=== PATIENT | male | born 1980 | race Hispanic/Latino ===

== ENCOUNTER 2021-06-06 02:52 | Inpatient (IN) | payer BC, OTHER, SELFPAY ==
[2021-06-06 03:08] LABS: Analyzer IN Cardio ER; Base Excess (BEa) -3.9 mEq/L (-2.0 to +3.0); CO2 Tension 32.9 mmHg (35.0-45.0); Calcium, Ionized (arterial) 1.11 mmol/L (1.12-1.30); Carboxyhemoglobin (COHb) 0.3 gm% (0.0-3.0); Hemoglobin (Hb) 12.9 g/dL (14.0-18.0); O2 Tension (PaO2), arterial 265.5 mmHg (80.0-100.0); Potassium - ABG Lab 2.59 mmol/L (3.70-5.30)
[2021-06-06 03:18] LABS: #Basophils 0.1 thou/uL (0.0-0.2); #Eosinphils 0.1 thou/uL (0.0-0.7); #Lymphocytes 2.7 thou/uL (1.20-3.40); #Monocytes 0.7 thou/uL (0.11-0.59); #Neutrophils 9.3 thou/uL (1.40-6.50); %Basophils 0.5 % (0.0-1.0); %Eosinophils 0.7 % (0.0-10.0); %Lymphocytes 20.9 % (21.0-51.0); %Monocytes 5.4 % (0.0-10.0); %Neutrophils 72.4 % (42.0-75.0); Hemoglobin 12.7 g/dL (14.0-18.0); Mean Corpuscular HGB CONC 33.9 g/dL (32.0-36.0); Mean Corpuscular Hemoglobin 30.3 pg (27.0-31.0); Mean Corpuscular Volume 89.3 fL (78.0-98.0); Mean Platelet Volume 8.1 fL (7.4-10.4); Platelet Count 218 thou/uL (130-400); RBC Distribution Width 11.5 % (11.5-14.5); Red Blood Cell (RBC) Count 4.19 mill/uL (4.70-6.10); White Blood Cell (WBC) Count 12.8 thou/uL (4.8-10.8)
[2021-06-06 03:19] LABS: Bilirubin Negative (Negative); Blood, Urine Negative (Negative); Clarity Clear (Clear); Glucose, Urine (Dipstick) 500 mg/dL (Negative); Ketone, Urine Negative (Negative); Leukocyte Negative Leu/uL (Negative); Nitrite Negative (Negative); Protein, Urine (Dipstick) Negative (Neg-Trace); Specific Gravity, Urine 1.004 (1.002-1.036); Urobilinogen Normal mg/dL (Less than 2)
[2021-06-06 03:27] LABS: INR-International Normal Ratio 1.1; Prothrombin Time 14.7 sec (12.0-14.7)
[2021-06-06 03:28] LABS: PTT 27.8 sec (22.9-36.1)
[2021-06-06 03:28] LABS: Amphetamine Not Detected (NotDetected); Barbiturates Screen Not Detected (NotDetected); Benzodiazepine Screen Not Detected (NotDetected); Cocaine Metabolite Screen Not Detected (NotDetected); Methadone Not Detected (NotDetected); Methamphetamine Not Detected (NotDetected); Opiate Screen Not Detected (NotDetected); Oxycodone Screen Not Detected (NotDetected); Phencyclidine (PCP) Not Detected (NotDetected); THC/Cannabinoid Screen Not Detected (NotDetected); Tricyclic Screen Not Detected (NotDetected)
[2021-06-06 03:29] LABS: ALV-art Gradient 406.375 mmHg (0-20); Puncture Site RRA
[2021-06-06] MEDS ORDERED: Dextrose 5% in Water 1,000 ML IV PRN (03:33)
[2021-06-06] MEDS ORDERED: TETANUS AND DIPHTHERIA TOX/PF 0.5 ML DISP.SYRIN IM ONE (03:33)
[2021-06-06] MEDS ORDERED: Dextrose 50% Abboject 50 ML SYRINGE SLOW IVP PRN (03:33)
[2021-06-06] MEDS ORDERED: Insulin Regular 300 UNITS/3 ML VIAL SC PRN (03:33)
[2021-06-06] MEDS ORDERED: Ondansetron PF 4 MG/2 ML Vial IVP PRN (03:33)
[2021-06-06] MEDS ORDERED: CEFAZOLIN 1 GM VIAL ONE (03:34)
[2021-06-06] MEDS ORDERED: Boostrix 0.5 ML (Tdap) VIAL ONE (03:34)
[2021-06-06] MEDS ORDERED: Acetaminophen 650 MG/20.3 ML UDCUP PER TUBE PRN (03:41)
[2021-06-06 03:43] LABS: Acetaminophen Less than 6.0 mcg/mL (10.0-30.0); Alcohol 146 mg/dL (Less than 10); Salicylate Less than 8.0 mg/dL (15.0-30.0)
[2021-06-06 03:44] LABS: ALT (SGPT) 29 U/L (8-55); AST (SGOT) 46 U/L (5-34); Albumin 3.7 g/dL (3.5-5.0); Alkaline Phosphatase 74 U/L (40-110); Anion Gap 14 mmol/L (10-20); BUN (Urea Nitrogen) 8 mg/dL (8.9-20.6); Bilirubin, Total 0.4 mg/dL (0.2-1.2); Calc. Creatinine Clearance 0 mL/min (70-130); Calcium 8.4 mg/dL (7.8-10.44); Carbon Dioxide 20 mmol/L (22-29); Chloride 102 mmol/L (98-107); Globulin 2.7 g/dL (2.4-3.5); Glucose 255 mg/dL (70-105); Protein, Total 6.4 g/dL (6.0-8.3); Sodium 133 mmol/L (136-145)
[2021-06-06] MEDS ORDERED: CEFAZOLIN 1 GM VIAL SLOW IVP SCH (03:44)
[2021-06-06] MEDS ORDERED: Ventilator Sedation Protocol 1 EACH FS SCH (03:45)
[2021-06-06 03:57] LABS: Potassium 2.7 mmol/L (3.5-5.1)
[2021-06-06] MEDS ORDERED: Morphine 4 MG/ML VIAL SLOW IVP PRN (04:00)
[2021-06-06] MEDS ORDERED: fentaNYL Citrate-0.9 % NaCl/PF 100 ML IV SCH (04:00)
[2021-06-06] MEDS ORDERED: Fentanyl BOLUS 250 ML IVPB PRN (04:00)
[2021-06-06] MEDS ORDERED: Propofol BOLUS 1,000 MG/100 ML VIAL IV PRN (04:00)
[2021-06-06] MEDS ORDERED: Lorazepam 2 MG/ML VIAL SLOW IVP PRN (04:00)
[2021-06-06] MEDS ORDERED: Propofol 1,000 MG/100 ML VIAL IV PRN (04:00)
[2021-06-06] MEDS ORDERED: DISCONTINUE PREVIOUS NARCOTIC PAIN MEDICATIONS AND BENZODIAZEPINES FS SCH (04:00)
[2021-06-06] MEDS ORDERED: Fentanyl 100 MCG/2 ML VIAL ONE (04:54)
[2021-06-06 05:09] LABS: Phosphorus 2.5 mg/dL (2.3-4.7)
[2021-06-06 05:11] LABS: Magnesium 1.7 mg/dL (1.6-2.6)
[2021-06-06] MEDS ORDERED: Magnesium Sulfate 3 GM in Sodium Chloride 0.9% 100 ML IVPB SCH (05:33)
[2021-06-06] MEDS ORDERED: Calcium Chloride 1 GM/10 ML Abboject SYRINGE IVP SCH (05:45)
[2021-06-06] MEDS ORDERED: Calcium Chloride 13.6 MEQ in Sodium Chloride 0.9% 100 ML IVPB SCH (06:15)
[2021-06-06] MEDS: Sodium Chloride 0.9% 1,000 ML IV SCH ×3 (06:15→22:42)
[2021-06-06] MEDS: Potassium Chloride 40 MEQ in Premix Bag 1 BAG IVPB SCH ×2 (06:15→07:17)
[2021-06-06 06:28] LABS: Lactic Acid 3.3 mmol/L (0.5-2.2)
[2021-06-06] MEDS: Famotidine/PF 20 mg/2ml Vial SLOW IVP SCH ×2 (08:39→20:37)
[2021-06-06] MEDS: Potassium Chloride 20 MEQ in Premix Bag 1 BAG IVPB SCH ×2 (08:40→11:26)
[2021-06-06] MEDS ORDERED: Senokot S 8.6-50 MG TAB PER TUBE SCH (09:00)
[2021-06-06] MEDS ORDERED: FLU VACC QS2021-22(6MOS UP)/PF 60 MCG/0.5 ML SYRINGE IM ONE (09:00)
[2021-06-06] MEDS ORDERED: Aspirin 81 mg Enteric Coated Tablet PO SCH (10:15)
[2021-06-06] MEDS ORDERED: Iopamidol 370 76% 100 ML VIAL ONE ×2 (10:40→10:44)
[2021-06-06] MEDS ORDERED: Acetaminophen 650 MG/20.3 ML UDCUP PER TUBE SCH (12:00)
[2021-06-06] MEDS ORDERED: Midazolam HCl 2 mg/2 ml Vial ONE (12:13)
[2021-06-06] MEDS: CEFAZOLIN 2 GM, Admixture Fee 1 EACH in Sodium Chloride 0.9% 100 ML IVPB SCH ×2 (12:24→20:37)
[2021-06-06] MEDS ORDERED: Rocuronium Bromide 10 MG/ML (10ML VIAL) ONE (12:36)
[2021-06-06] MEDS ORDERED: PROPOFOL 200 MG/20 ML VIAL ONE (12:36)
[2021-06-06] MEDS ORDERED: Fentanyl 250 MCG/5 ML VIAL ONE (13:37)
[2021-06-06] MEDS ORDERED: Promethazine HCl 25 MG/ML VIAL IM PRN (13:50)
[2021-06-06] MEDS ORDERED: PACU-Morphine 4MG/ML VIAL SLOW IVP PRN (13:50)
[2021-06-06] MEDS ORDERED: Ondansetron HCl/PF 4 MG/2 ML Vial IVP PRN (13:50)
[2021-06-06] MEDS ORDERED: Promethazine HCl 25 MG/ML VIAL IVPB PRN (13:50)
[2021-06-06] MEDS: Bacitracin Zinc Ointment 30 gm TUBE TOP SCH (14:29)
[2021-06-06] MEDS ORDERED: Acetaminophen/Codeine 30-300mg Tablet PO PRN ×2 (15:23)
[2021-06-06 15:25] LABS: SARS-CoV-2 PCR by NAA Not Detected (NotDetected)
[2021-06-06] MEDS: hydrALAZINE 20 MG/ML VIAL SLOW IVP PRN (15:38)
[2021-06-06] MEDS: Insulin Regular 300 UNITS/3 ML VIAL SC PRN (16:26)
[2021-06-06] MEDS: Acetaminophen 325 MG TAB PO SCH (16:56)
[2021-06-06] MEDS: Senokot S 8.6-50 MG TAB PO SCH (20:38)
[2021-06-07] MEDS: Acetaminophen 325 MG TAB PO SCH ×5 (00:15→17:31)
[2021-06-07] MEDS: Senokot S 8.6-50 MG TAB PO SCH ×3 (00:24→20:47)
[2021-06-07] MEDS: CEFAZOLIN 2 GM, Admixture Fee 1 EACH in Sodium Chloride 0.9% 100 ML IVPB SCH ×3 (04:18→20:46)
[2021-06-07] MEDS: Insulin Regular 300 UNITS/3 ML VIAL SC PRN ×4 (04:18→23:21)
[2021-06-07] MEDS: hydrALAZINE 20 MG/ML VIAL SLOW IVP PRN (04:19)
[2021-06-07 04:25] LABS: #Monocytes 1.1 thou/uL (0.11-0.59); #Neutrophils 14.8 thou/uL (1.40-6.50); %Basophils 0.1 % (0.0-1.0); %Lymphocytes 5.6 % (21.0-51.0); %Monocytes 6.4 % (0.0-10.0); %Neutrophils 87.9 % (42.0-75.0); Hemoglobin 12.2 g/dL (14.0-18.0); Mean Corpuscular HGB CONC 31.8 g/dL (32.0-36.0); Mean Corpuscular Hemoglobin 28.8 pg (27.0-31.0); Mean Corpuscular Volume 90.7 fL (78.0-98.0); Mean Platelet Volume 8.8 fL (7.4-10.4); Platelet Count 240 thou/uL (130-400); RBC Distribution Width 11.8 % (11.5-14.5); Red Blood Cell (RBC) Count 4.23 mill/uL (4.70-6.10); White Blood Cell (WBC) Count 16.9 thou/uL (4.8-10.8)
[2021-06-07 04:33] LABS: Anion Gap 9 mmol/L (10-20); BUN (Urea Nitrogen) 8 mg/dL (8.9-20.6); Calc. Creatinine Clearance 161 mL/min (70-130); Calcium 8.5 mg/dL (7.8-10.44); Carbon Dioxide 26 mmol/L (22-29); Chloride 103 mmol/L (98-107); Glucose 219 mg/dL (70-105); Magnesium 2.2 mg/dL (1.6-2.6); Potassium 3.9 mmol/L (3.5-5.1); Sodium 134 mmol/L (136-145)
[2021-06-07 04:35] LABS: Phosphorus 2.3 mg/dL (2.3-4.7)
[2021-06-07] MEDS: Sodium Chloride 0.9% 1,000 ML IV SCH ×2 (06:14→12:54)
[2021-06-07] MEDS: Famotidine/PF 20 mg/2ml Vial SLOW IVP SCH ×2 (08:54→20:47)
[2021-06-07] MEDS: Aspirin 81 mg Enteric Coated Tablet PO SCH (08:55)
[2021-06-07] MEDS: Bacitracin Zinc Ointment 30 gm TUBE TOP SCH (08:55)
[2021-06-07] MEDS ORDERED: Sodium Phosphate 15 MMOL in Sodium Chloride 0.9% 250 ML 250 ML IVPB SCH (11:30)
[2021-06-07] MEDS ORDERED: Sodium Chloride 1 GM TAB PO SCH (12:30)
[2021-06-07] MEDS: Polyethylene Glycol 3350 17 GM Packet PO SCH (12:53)
[2021-06-07] MEDS: Sodium Chloride 1 GM TAB PO SCH (20:50)
[2021-06-08] MEDS: Acetaminophen 325 MG TAB PO SCH ×5 (00:19→23:26)
[2021-06-08] MEDS: hydrALAZINE 20 MG/ML VIAL SLOW IVP PRN (00:20)
[2021-06-08] MEDS: Sodium Chloride 0.9% 1,000 ML IV SCH ×2 (03:35→18:30)
[2021-06-08] MEDS: CEFAZOLIN 2 GM, Admixture Fee 1 EACH in Sodium Chloride 0.9% 100 ML IVPB SCH ×3 (04:07→20:35)
[2021-06-08 05:19] LABS: #Lymphocytes 1.5 thou/uL (1.20-3.40); #Monocytes 1.6 thou/uL (0.11-0.59); #Neutrophils 13.1 thou/uL (1.40-6.50); %Eosinophils 0.1 % (0.0-10.0); %Lymphocytes 9.2 % (21.0-51.0); %Monocytes 9.7 % (0.0-10.0); Hemoglobin 12.4 g/dL (14.0-18.0); Mean Corpuscular Hemoglobin 29.8 pg (27.0-31.0); Mean Corpuscular Volume 90.4 fL (78.0-98.0); Mean Platelet Volume 8.5 fL (7.4-10.4); Platelet Count 263 thou/uL (130-400); RBC Distribution Width 11.7 % (11.5-14.5); Red Blood Cell (RBC) Count 4.16 mill/uL (4.70-6.10); White Blood Cell (WBC) Count 16.2 thou/uL (4.8-10.8)
[2021-06-08 06:14] LABS: Anion Gap 22 mmol/L (10-20); BUN (Urea Nitrogen) 11 mg/dL (8.9-20.6); Calc. Creatinine Clearance 155 mL/min (70-130); Calcium 8.5 mg/dL (7.8-10.44); Carbon Dioxide 14 mmol/L (22-29); Chloride 105 mmol/L (98-107); Glucose 245 mg/dL (70-105); Magnesium 2.4 mg/dL (1.6-2.6); Phosphorus 1.7 mg/dL (2.3-4.7); Potassium 3.8 mmol/L (3.5-5.1); Sodium 137 mmol/L (136-145)
[2021-06-08] MEDS ORDERED: Sodium Chloride 0.9% 1,000 ML IV SCH (07:45)
[2021-06-08 08:48] LABS: Sodium 138 mmol/L (136-145)
[2021-06-08] MEDS ORDERED: chlorproMAZINE HCl 25 MG TAB PO PRN (09:15)
[2021-06-08] MEDS: Famotidine/PF 20 mg/2ml Vial SLOW IVP SCH ×2 (11:00→20:35)
[2021-06-08] MEDS: Senokot S 8.6-50 MG TAB PO SCH ×2 (11:00→20:35)
[2021-06-08] MEDS: Aspirin 81 mg Enteric Coated Tablet PO SCH (11:01)
[2021-06-08] MEDS: Polyethylene Glycol 3350 17 GM Packet PO SCH (11:02)
[2021-06-08] MEDS: Bacitracin Zinc Ointment 30 gm TUBE TOP SCH (11:02)
[2021-06-08] MEDS: Sodium Chloride 1 GM TAB PO SCH (13:17)
[2021-06-08 14:46] LABS: Sodium 136 mmol/L (136-145)
[2021-06-08] MEDS: Insulin Regular 300 UNITS/3 ML VIAL SC PRN ×2 (16:56→22:18)
[2021-06-08] MEDS: chlorproMAZINE HCl 50 MG/2 ML AMP IM PRN (17:48)
[2021-06-08 20:35] LABS: Sodium 136 mmol/L (136-145)
[2021-06-09 02:43] LABS: #Basophils 0.1 thou/uL (0.0-0.2); #Lymphocytes 1.8 thou/uL (1.20-3.40); #Monocytes 1.7 thou/uL (0.11-0.59); #Neutrophils 10.8 thou/uL (1.40-6.50); %Basophils 0.5 % (0.0-1.0); %Eosinophils 0.1 % (0.0-10.0); %Lymphocytes 12.7 % (21.0-51.0); %Monocytes 11.6 % (0.0-10.0); %Neutrophils 75.2 % (42.0-75.0); Hemoglobin 12.8 g/dL (14.0-18.0); Mean Corpuscular HGB CONC 34.3 g/dL (32.0-36.0); Mean Corpuscular Hemoglobin 30.7 pg (27.0-31.0); Mean Corpuscular Volume 89.4 fL (78.0-98.0); Mean Platelet Volume 8.5 fL (7.4-10.4); Platelet Count 270 thou/uL (130-400); RBC Distribution Width 11.8 % (11.5-14.5); Red Blood Cell (RBC) Count 4.17 mill/uL (4.70-6.10); White Blood Cell (WBC) Count 14.3 thou/uL (4.8-10.8)
[2021-06-09 02:55] LABS: Sodium 139 mmol/L (136-145)
[2021-06-09 03:12] LABS: Anion Gap 8 mmol/L (10-20); BUN (Urea Nitrogen) 16 mg/dL (8.9-20.6); Calc. Creatinine Clearance 143 mL/min (70-130); Carbon Dioxide 29 mmol/L (22-29); Chloride 107 mmol/L (98-107); Glucose 298 mg/dL (70-105); Magnesium 2.7 mg/dL (1.6-2.6); Potassium 4.3 mmol/L (3.5-5.1); Sodium 140 mmol/L (136-145)
[2021-06-09 03:30] LABS: Phosphorus 1.8 mg/dL (2.3-4.7)
[2021-06-09] MEDS: Insulin Regular 300 UNITS/3 ML VIAL SC PRN ×4 (04:16→23:10)
[2021-06-09] MEDS: CEFAZOLIN 2 GM, Admixture Fee 1 EACH in Sodium Chloride 0.9% 100 ML IVPB SCH (04:50)
[2021-06-09] MEDS: Sodium Chloride 0.9% 1,000 ML IV SCH ×2 (05:34→22:13)
[2021-06-09] MEDS: Acetaminophen 325 MG TAB PO SCH ×3 (05:41→18:37)
[2021-06-09] MEDS ORDERED: Sodium Phosphate 30 MMOL in Sodium Chloride 0.9% 250 ML 250 ML IVPB SCH (06:45)
[2021-06-09] MEDS ORDERED: Potassium Phosphate 30 MMOL in Sodium Chloride 0.9% 250 ML 250 ML IVPB SCH (07:45)
[2021-06-09] MEDS: Bacitracin Zinc Ointment 30 gm TUBE TOP SCH (08:05)
[2021-06-09] MEDS: Aspirin 81 mg Enteric Coated Tablet PO SCH (08:05)
[2021-06-09] MEDS: Polyethylene Glycol 3350 17 GM Packet PO SCH (08:05)
[2021-06-09] MEDS: Senokot S 8.6-50 MG TAB PO SCH ×2 (08:05→22:12)
[2021-06-09] MEDS: Famotidine/PF 20 mg/2ml Vial SLOW IVP SCH ×2 (08:05→21:59)
[2021-06-09 08:32] LABS: Sodium 141 mmol/L (136-145)
[2021-06-09] MEDS: Aspirin Chewable 81 MG TAB PO SCH (08:48)
[2021-06-09] MEDS ORDERED: cefTRIAXone\\ROCEPHIN 1 GM in Sodium Chloride 0.9% 100 ML IVPB SCH (09:00)
[2021-06-09] MEDS ORDERED: Piperacillin/Tazobactam 3.375 GM in Sodium Chloride 0.9% 100 ML IVPB SCH (09:00)
[2021-06-09] MEDS ORDERED: Lantus 1000 UNITS/10 ML VIAL SC SCH ×3 (09:00→21:00)
[2021-06-09] MEDS: Saccharomyces boulardii 250 MG CAP PO SCH (11:42)
[2021-06-09] MEDS: Piperacillin/Tazobactam 3.375 GM in Sodium Chloride 0.9% 100 ML IVPB SCH ×2 (13:08→21:59)
[2021-06-09] MEDS: chlorproMAZINE HCl 50 MG/2 ML AMP IM PRN (15:42)
[2021-06-09] MEDS ORDERED: Dextrose 5% in Water 1,000 ML IV PRN (22:34)
[2021-06-09] MEDS ORDERED: Dextrose 50% Abboject 50 ML SYRINGE SLOW IVP PRN (22:34)
[2021-06-10] MEDS: Acetaminophen 325 MG TAB PO SCH ×4 (00:18→17:25)
[2021-06-10] MEDS: Insulin Regular 300 UNITS/3 ML VIAL SC PRN ×6 (00:28→22:16)
[2021-06-10 04:04] LABS: #Lymphocytes 1.7 thou/uL (1.20-3.40); #Monocytes 1.6 thou/uL (0.11-0.59); #Neutrophils 11.6 thou/uL (1.40-6.50); %Basophils 0.3 % (0.0-1.0); %Eosinophils 0.3 % (0.0-10.0); %Lymphocytes 11.4 % (21.0-51.0); %Monocytes 10.5 % (0.0-10.0); %Neutrophils 77.5 % (42.0-75.0); Hemoglobin 12.5 g/dL (14.0-18.0); Mean Corpuscular HGB CONC 32.3 g/dL (32.0-36.0); Mean Corpuscular Hemoglobin 29.7 pg (27.0-31.0); Mean Corpuscular Volume 91.9 fL (78.0-98.0); Mean Platelet Volume 8.4 fL (7.4-10.4); Platelet Count 285 thou/uL (130-400); RBC Distribution Width 12.1 % (11.5-14.5); Red Blood Cell (RBC) Count 4.21 mill/uL (4.70-6.10)
[2021-06-10] MEDS: Piperacillin/Tazobactam 3.375 GM in Sodium Chloride 0.9% 100 ML IVPB SCH ×3 (05:20→20:12)
[2021-06-10 05:36] LABS: Anion Gap 11 mmol/L (10-20); BUN (Urea Nitrogen) 18 mg/dL (8.9-20.6); Calc. Creatinine Clearance 173 mL/min (70-130); Calcium 9.3 mg/dL (7.8-10.44); Carbon Dioxide 25 mmol/L (22-29); Chloride 110 mmol/L (98-107); Glucose 286 mg/dL (70-105); Magnesium 2.7 mg/dL (1.6-2.6); Phosphorus 3.1 mg/dL (2.3-4.7); Potassium 4.3 mmol/L (3.5-5.1); Sodium 142 mmol/L (136-145)
[2021-06-10] MEDS: Aspirin Chewable 81 MG TAB PO SCH (08:26)
[2021-06-10] MEDS: metFORMIN 500 MG TAB PO SCH ×2 (08:26→16:39)
[2021-06-10] MEDS: Senokot S 8.6-50 MG TAB PO SCH ×2 (08:26→20:12)
[2021-06-10] MEDS: Saccharomyces boulardii 250 MG CAP PO SCH (08:26)
[2021-06-10] MEDS: Polyethylene Glycol 3350 17 GM Packet PO SCH (08:27)
[2021-06-10] MEDS: Famotidine 20 MG TAB PER TUBE SCH ×2 (08:27→20:12)
[2021-06-10] MEDS: Sodium Chloride 0.9% 1,000 ML IV SCH (08:27)
[2021-06-10] MEDS: Bacitracin Zinc Ointment 30 gm TUBE TOP SCH (08:27)
[2021-06-10] MEDS ORDERED: Lantus 1000 UNITS/10 ML VIAL SC SCH ×2 (09:00)
[2021-06-10] MEDS: Lantus 1000 UNITS/10 ML VIAL SC SCH ×2 (09:36→22:15)
[2021-06-10] MEDS: chlorproMAZINE HCl 50 MG/2 ML AMP IM PRN ×2 (12:32→16:39)
[2021-06-11] MEDS: Acetaminophen 325 MG TAB PO SCH ×5 (01:01→23:31)
[2021-06-11] MEDS: Insulin Regular 300 UNITS/3 ML VIAL SC PRN ×2 (01:25→12:11)
[2021-06-11 05:32] LABS: #Eosinphils 0.1 thou/uL (0.0-0.7); #Lymphocytes 2.5 thou/uL (1.20-3.40); #Monocytes 1.2 thou/uL (0.11-0.59); #Neutrophils 11.6 thou/uL (1.40-6.50); %Basophils 0.3 % (0.0-1.0); %Eosinophils 0.7 % (0.0-10.0); %Lymphocytes 16.1 % (21.0-51.0); %Monocytes 7.9 % (0.0-10.0); Hemoglobin 11.8 g/dL (14.0-18.0); Mean Corpuscular HGB CONC 31.6 g/dL (32.0-36.0); Mean Corpuscular Volume 91.8 fL (78.0-98.0); Mean Platelet Volume 8.3 fL (7.4-10.4); Platelet Count 342 thou/uL (130-400); RBC Distribution Width 12.3 % (11.5-14.5); Red Blood Cell (RBC) Count 4.08 mill/uL (4.70-6.10); White Blood Cell (WBC) Count 15.5 thou/uL (4.8-10.8)
[2021-06-11] MEDS: Piperacillin/Tazobactam 3.375 GM in Sodium Chloride 0.9% 100 ML IVPB SCH ×3 (05:38→20:57)
[2021-06-11 05:50] LABS: Anion Gap 16 mmol/L (10-20); BUN (Urea Nitrogen) 17 mg/dL (8.9-20.6); Calc. Creatinine Clearance 132 mL/min (70-130); Calcium 9.2 mg/dL (7.8-10.44); Carbon Dioxide 25 mmol/L (22-29); Chloride 111 mmol/L (98-107); Glucose 183 mg/dL (70-105); Magnesium 2.3 mg/dL (1.6-2.6); Phosphorus 3.4 mg/dL (2.3-4.7); Potassium 3.9 mmol/L (3.5-5.1); Sodium 148 mmol/L (136-145)
[2021-06-11] MEDS: Senokot S 8.6-50 MG TAB PO SCH ×2 (08:44→20:58)
[2021-06-11] MEDS: Saccharomyces boulardii 250 MG CAP PO SCH (08:44)
[2021-06-11] MEDS: metFORMIN 500 MG TAB PO SCH ×2 (08:45→17:13)
[2021-06-11] MEDS: Lantus 1000 UNITS/10 ML VIAL SC SCH ×2 (08:45→20:58)
[2021-06-11] MEDS: Famotidine 20 MG TAB PER TUBE SCH (08:45)
[2021-06-11] MEDS: Aspirin Chewable 81 MG TAB PO SCH (08:45)
[2021-06-11] MEDS: Polyethylene Glycol 3350 17 GM Packet PO SCH (08:45)
[2021-06-11] MEDS: Bacitracin Zinc Ointment 30 gm TUBE TOP SCH (08:45)
[2021-06-11] MEDS ORDERED: ceFAZolin 2 GM/Dextrose 50 ML 2 GM in Premix Bag 1 BAG IVPB SCH (09:00)
[2021-06-11] MEDS ORDERED: ceFAZolin Sodium (SDC) 2 GM/100 ML BAG ONE (10:16)
[2021-06-11] MEDS ORDERED: Ketamine 50 MG/ML (10ML VIAL) ONE (10:19)
[2021-06-11] MEDS ORDERED: Midazolam HCl 2 mg/2 ml Vial ONE (10:19)
[2021-06-11] MEDS ORDERED: PROPOFOL 200 MG/20 ML VIAL ONE (10:29)
[2021-06-11] MEDS ORDERED: Sodium Chloride 0.9% 1,000 ML IV SCH ×2 (11:45→17:00)
[2021-06-12] MEDS: Piperacillin/Tazobactam 3.375 GM in Sodium Chloride 0.9% 100 ML IVPB SCH ×3 (05:35→21:10)
[2021-06-12] MEDS: chlorproMAZINE HCl 50 MG/2 ML AMP IM PRN (05:36)
[2021-06-12] MEDS: Insulin Regular 300 UNITS/3 ML VIAL SC PRN ×4 (05:36→23:38)
[2021-06-12] MEDS: Acetaminophen 325 MG TAB PO SCH ×4 (05:58→23:37)
[2021-06-12 06:36] LABS: #Basophils 0.1 thou/uL (0.0-0.2); #Eosinphils 0.1 thou/uL (0.0-0.7); #Lymphocytes 2.2 thou/uL (1.20-3.40); #Monocytes 1.3 thou/uL (0.11-0.59); #Neutrophils 13.7 thou/uL (1.40-6.50); %Basophils 0.4 % (0.0-1.0); %Eosinophils 0.6 % (0.0-10.0); %Lymphocytes 12.5 % (21.0-51.0); %Monocytes 7.6 % (0.0-10.0); %Neutrophils 78.9 % (42.0-75.0); Hemoglobin 12.7 g/dL (14.0-18.0); Mean Corpuscular HGB CONC 31.1 g/dL (32.0-36.0); Mean Corpuscular Hemoglobin 28.9 pg (27.0-31.0); Mean Platelet Volume 8.4 fL (7.4-10.4); Platelet Count 389 thou/uL (130-400); RBC Distribution Width 12.2 % (11.5-14.5); Red Blood Cell (RBC) Count 4.39 mill/uL (4.70-6.10); White Blood Cell (WBC) Count 17.3 thou/uL (4.8-10.8)
[2021-06-12 07:02] LABS: Anion Gap 15 mmol/L (10-20); BUN (Urea Nitrogen) 17 mg/dL (8.9-20.6); Calc. Creatinine Clearance 130 mL/min (70-130); Calcium 9.7 mg/dL (7.8-10.44); Carbon Dioxide 25 mmol/L (22-29); Chloride 109 mmol/L (98-107); Glucose 210 mg/dL (70-105); Magnesium 2.3 mg/dL (1.6-2.6); Phosphorus 3.9 mg/dL (2.3-4.7); Potassium 4.2 mmol/L (3.5-5.1); Sodium 145 mmol/L (136-145)
[2021-06-12] MEDS: Bacitracin Zinc Ointment 30 gm TUBE TOP SCH (08:22)
[2021-06-12] MEDS: Aspirin Chewable 81 MG TAB PO SCH (08:22)
[2021-06-12] MEDS: Polyethylene Glycol 3350 17 GM Packet PO SCH (08:22)
[2021-06-12] MEDS: Saccharomyces boulardii 250 MG CAP PO SCH (08:22)
[2021-06-12] MEDS: metFORMIN 500 MG TAB PO SCH (08:22)
[2021-06-12] MEDS: Lansoprazole 3 MG/ML ORAL SUSPENSION PER TUBE SCH (08:22)
[2021-06-12] MEDS: Lantus 1000 UNITS/10 ML VIAL SC SCH ×2 (08:22→21:09)
[2021-06-12] MEDS: Senokot S 8.6-50 MG TAB PO SCH ×2 (08:22→21:10)
[2021-06-12] MEDS ORDERED: Fentanyl 250 MCG/5 ML VIAL ONE (09:16)
[2021-06-12] MEDS ORDERED: Rocuronium Bromide 10 MG/ML (10ML VIAL) ONE (09:38)
[2021-06-12] MEDS ORDERED: Ondansetron PF 4 MG/2 ML Vial ONE (09:38)
[2021-06-12] MEDS ORDERED: Dexamethasone 20 MG/5 ML VIAL ONE (09:38)
[2021-06-12] MEDS ORDERED: PROPOFOL 200 MG/20 ML VIAL ONE (09:38)
[2021-06-12] MEDS ORDERED: ePHEDrine 50 MG/ML VIAL ONE (09:38)
[2021-06-12] MEDS ORDERED: Lidocaine 1% PF 5 ML VIAL ONE (09:38)
[2021-06-12] MEDS ORDERED: PHENYLEPHRINE-NS 100 MCG/ML 10 ML SYRINGE ONE (09:38)
[2021-06-12] MEDS ORDERED: SUGAMMADEX SODIUM 200 MG/2 ML VIAL ONE (12:14)
[2021-06-12] MEDS ORDERED: Promethazine HCl 25 MG/ML VIAL IM PRN (12:34)
[2021-06-12] MEDS ORDERED: Ondansetron HCl/PF 4 MG/2 ML Vial IVP PRN (12:34)
[2021-06-12] MEDS ORDERED: Promethazine HCl 25 MG/ML VIAL IVPB PRN (12:34)
[2021-06-12] MEDS: Metoclopramide HCl 10 MG/2 ML VIAL IVP SCH ×2 (14:08→21:09)
[2021-06-12] MEDS: Scopolamine 1.5 mg/72 hour Patch TD SCH (14:09)
[2021-06-12] MEDS ORDERED: Pantoprazole 40 MG VIAL IVP SCH (16:30)
[2021-06-12] MEDS: CEFAZOLIN 2 GM, Admixture Fee 1 EACH in Sodium Chloride 0.9% 100 ML IVPB SCH (17:35)
[2021-06-13 00:03] LABS: SARS-CoV-2 PCR by NAA Not Detected (NotDetected)
[2021-06-13] MEDS: CEFAZOLIN 2 GM, Admixture Fee 1 EACH in Sodium Chloride 0.9% 100 ML IVPB SCH ×3 (02:44→18:37)
[2021-06-13] MEDS: Piperacillin/Tazobactam 3.375 GM in Sodium Chloride 0.9% 100 ML IVPB SCH ×3 (04:43→21:28)
[2021-06-13] MEDS: Insulin Regular 300 UNITS/3 ML VIAL SC PRN ×5 (04:43→22:39)
[2021-06-13 06:05] LABS: Band 6 % (5-11); Eosinophils 2 % (0-10); Hemoglobin 11.3 g/dL (14.0-18.0); Lymphocytes 12 % (21-51); MDiff Complete? YES; Mean Corpuscular HGB CONC 32.5 g/dL (32.0-36.0); Mean Corpuscular Hemoglobin 29.6 pg (27.0-31.0); Mean Corpuscular Volume 91.1 fL (78.0-98.0); Mean Platelet Volume 8.2 fL (7.4-10.4); Monocytes 7 % (0-10); Neutrophil 73 % (42-75); Platelet Count 354 thou/uL (130-400); Platelet Morphology Comment Appears Adequate; RBC Distribution Width 12.1 % (11.5-14.5); RBC Morphology Normal; Red Blood Cell (RBC) Count 3.81 mill/uL (4.70-6.10); White Blood Cell (WBC) Count 20.4 thou/uL (4.8-10.8)
[2021-06-13] MEDS: Metoclopramide HCl 10 MG/2 ML VIAL IVP SCH ×3 (06:23→21:31)
[2021-06-13] MEDS: Acetaminophen 325 MG TAB PO SCH ×3 (06:23→18:38)
[2021-06-13] MEDS: Lansoprazole 3 MG/ML ORAL SUSPENSION PER TUBE SCH (09:22)
[2021-06-13] MEDS: Senokot S 8.6-50 MG TAB PO SCH ×2 (09:25→21:31)
[2021-06-13] MEDS: Polyethylene Glycol 3350 17 GM Packet PO SCH (09:25)
[2021-06-13] MEDS: Saccharomyces boulardii 250 MG CAP PO SCH (09:25)
[2021-06-13] MEDS: Lantus 1000 UNITS/10 ML VIAL SC SCH ×2 (09:25→21:27)
[2021-06-13] MEDS: Aspirin Chewable 81 MG TAB PO SCH (09:26)
[2021-06-13] MEDS: Bacitracin Zinc Ointment 30 gm TUBE TOP SCH (09:27)
[2021-06-13] MEDS: metFORMIN 500 MG TAB PO SCH (18:38)
[2021-06-14] MEDS: Insulin Regular 300 UNITS/3 ML VIAL SC PRN ×6 (00:40→23:40)
[2021-06-14] MEDS: Acetaminophen 325 MG TAB PO SCH ×7 (00:41→23:41)
[2021-06-14] MEDS: CEFAZOLIN 2 GM, Admixture Fee 1 EACH in Sodium Chloride 0.9% 100 ML IVPB SCH ×2 (03:12→14:19)
[2021-06-14] MEDS: Metoclopramide HCl 10 MG/2 ML VIAL IVP SCH ×3 (05:53→21:00)
[2021-06-14] MEDS: Piperacillin/Tazobactam 3.375 GM in Sodium Chloride 0.9% 100 ML IVPB SCH ×2 (05:53→14:28)
[2021-06-14] MEDS: Senokot S 8.6-50 MG TAB PO SCH ×2 (08:43→20:58)
[2021-06-14] MEDS: Polyethylene Glycol 3350 17 GM Packet PO SCH (08:43)
[2021-06-14] MEDS: Lantus 1000 UNITS/10 ML VIAL SC SCH ×2 (08:43→20:59)
[2021-06-14] MEDS: Saccharomyces boulardii 250 MG CAP PO SCH (08:43)
[2021-06-14] MEDS: metFORMIN 500 MG TAB PO SCH ×2 (08:43→16:53)
[2021-06-14] MEDS: Aspirin Chewable 81 MG TAB PO SCH (08:43)
[2021-06-14] MEDS: Bacitracin Zinc Ointment 30 gm TUBE TOP SCH (08:44)
[2021-06-14] MEDS: Lansoprazole 3 MG/ML ORAL SUSPENSION PER TUBE SCH (09:02)
[2021-06-14 09:54] LABS: #Basophils 0.1 thou/uL (0.0-0.2); #Eosinphils 0.2 thou/uL (0.0-0.7); #Lymphocytes 2.5 thou/uL (1.20-3.40); #Monocytes 0.7 thou/uL (0.11-0.59); #Neutrophils 13.7 thou/uL (1.40-6.50); %Basophils 0.4 % (0.0-1.0); %Eosinophils 1.1 % (0.0-10.0); %Lymphocytes 14.5 % (21.0-51.0); %Monocytes 4.1 % (0.0-10.0); %Neutrophils 79.9 % (42.0-75.0); Hemoglobin 11.6 g/dL (14.0-18.0); Mean Corpuscular HGB CONC 31.2 g/dL (32.0-36.0); Mean Corpuscular Hemoglobin 29.1 pg (27.0-31.0); Mean Platelet Volume 7.9 fL (7.4-10.4); Platelet Count 386 thou/uL (130-400); RBC Distribution Width 12.4 % (11.5-14.5); White Blood Cell (WBC) Count 17.2 thou/uL (4.8-10.8)
[2021-06-14 10:16] LABS: Anion Gap 13 mmol/L (10-20); BUN (Urea Nitrogen) 17 mg/dL (8.9-20.6); Calc. Creatinine Clearance 119 mL/min (70-130); Calcium 9.2 mg/dL (7.8-10.44); Carbon Dioxide 24 mmol/L (22-29); Chloride 111 mmol/L (98-107); Glucose 276 mg/dL (70-105); Magnesium 2.3 mg/dL (1.6-2.6); Phosphorus 2.9 mg/dL (2.3-4.7); Potassium 4.4 mmol/L (3.5-5.1); Sodium 144 mmol/L (136-145)
[2021-06-14] MEDS: chlorproMAZINE HCl 50 MG/2 ML AMP IM PRN (16:55)
[2021-06-14] MEDS: Amoxicillin/Potassium Clav 875 MG TAB PO SCH (20:58)
[2021-06-15] MEDS: Metoclopramide HCl 10 MG/2 ML VIAL IVP SCH ×2 (05:04→13:04)
[2021-06-15] MEDS: Acetaminophen 325 MG TAB PO SCH ×2 (05:05→11:40)
[2021-06-15] MEDS: Insulin Regular 300 UNITS/3 ML VIAL SC PRN ×2 (05:05→11:40)
[2021-06-15 08:29] VITALS: BMI 23.3
[2021-06-15] MEDS ORDERED: Enoxaparin Sodium 40 MG/0.4 ML SYRINGE SC SCH (09:00)
[2021-06-15] MEDS: Amoxicillin/Potassium Clav 875 MG TAB PO SCH (09:52)
[2021-06-15] MEDS: Aspirin Chewable 81 MG TAB PO SCH (09:52)
[2021-06-15] MEDS: Lansoprazole 3 MG/ML ORAL SUSPENSION PER TUBE SCH (09:53)
[2021-06-15] MEDS: Saccharomyces boulardii 250 MG CAP PO SCH (09:53)
[2021-06-15] MEDS: metFORMIN 500 MG TAB PO SCH (09:53)
[2021-06-15] MEDS: Bacitracin Zinc Ointment 30 gm TUBE TOP SCH (09:53)
[2021-06-15] MEDS: Lantus 1000 UNITS/10 ML VIAL SC SCH (09:53)
[2021-06-15] MEDS: Polyethylene Glycol 3350 17 GM Packet PO SCH (09:54)
[2021-06-15] MEDS: Senokot S 8.6-50 MG TAB PO SCH (09:54)
[2021-06-15 11:51] VITALS: TEMP 98.3
[2021-06-15] MEDS: Scopolamine 1.5 mg/72 hour Patch TD SCH (13:04)
[2021-06-15 15:32] VITALS: BP 126/84
== END 2021-06-15 17:30 | DRG 492 ==
LOC: ERS 02:52 → EDBD 02:52 → CCU 03:30 → SURG A 06-10 17:51
PROVIDERS: ADMIT Surgery; ATTEND Surgery
PROC: 0QSH05Z Reposition Left Tibia with External Fixation Device, Open Approach (ICD-10-PCS; 2021-06-06)
PROC: 5A1935Z Respiratory Ventilation, Less than 24 Consecutive Hours (ICD-10-PCS; 2021-06-06)
PROC: 0HQ0XZZ Repair Scalp Skin, External Approach (ICD-10-PCS; 2021-06-06)
PROC: 0D9670Z Drainage of Stomach with Drainage Device, Via Natural or Artificial Opening (ICD-10-PCS; 2021-06-06)
PROC: 3E0G76Z Introduction of Nutritional Substance into Upper GI, Via Natural or Artificial Opening (ICD-10-PCS; 2021-06-08)
PROC: 0DH63UZ Insertion of Feeding Device into Stomach, Percutaneous Approach (ICD-10-PCS; 2021-06-11)
PROC: 0QSH04Z Reposition Left Tibia with Internal Fixation Device, Open Approach (ICD-10-PCS; principal; 2021-06-12)
PROC: 0QSK04Z Reposition Left Fibula with Internal Fixation Device, Open Approach (ICD-10-PCS; 2021-06-12)
PROC: 0QPH05Z Removal of External Fixation Device from Left Tibia, Open Approach (ICD-10-PCS; 2021-06-12)
DX: S82.872A Displaced pilon fracture of left tibia, initial encounter for closed fracture (principal); S06.5X9A Traumatic subdural hemorrhage with loss of consciousness of unspecified duration, initial encounter; S06.6X9A Traumatic subarachnoid hemorrhage with loss of consciousness of unspecified duration, initial encounter; S06.1X9A Traumatic cerebral edema with loss of consciousness of unspecified duration, initial encounter; S02.19XB Other fracture of base of skull, initial encounter for open fracture; S02.11GB Other fracture of occiput, right side, initial encounter for open fracture; S02.0XXB Fracture of vault of skull, initial encounter for open fracture; J96.00 Acute respiratory failure, unspecified whether with hypoxia or hypercapnia; I63.541 Cerebral infarction due to unspecified occlusion or stenosis of right cerebellar artery; J69.0 Pneumonitis due to inhalation of food and vomit; R40.2312 Coma scale, best motor response, none, at arrival to emergency department; R40.2112 Coma scale, eyes open, never, at arrival to emergency department; R40.2212 Coma scale, best verbal response, none, at arrival to emergency department; S02.81XB Fracture of other specified skull and facial bones, right side, initial encounter for open fracture; S82.252A Displaced comminuted fracture of shaft of left tibia, initial encounter for closed fracture; E87.1 Hypo-osmolality and hyponatremia; E87.2 Acidosis; G93.1 Anoxic brain damage, not elsewhere classified; E87.0 Hyperosmolality and hypernatremia; Z20.822 Contact with and (suspected) exposure to COVID-19; Z23 Encounter for immunization; R29.705 NIHSS score 5; R13.12 Dysphagia, oropharyngeal phase; K29.70 Gastritis, unspecified, without bleeding; S82.452A Displaced comminuted fracture of shaft of left fibula, initial encounter for closed fracture; G93.89 Other specified disorders of brain; E87.6 Hypokalemia; F10.129 Alcohol abuse with intoxication, unspecified; Y90.6 Blood alcohol level of 120-199 mg/100 ml; E83.42 Hypomagnesemia; E83.39 Other disorders of phosphorus metabolism; E11.65 Type 2 diabetes mellitus with hyperglycemia; D72.829 Elevated white blood cell count, unspecified; Z78.1 Physical restraint status; Z79.84 Long term (current) use of oral hypoglycemic drugs
CPT/HCPCS: 12005; 29515; 36415; 36416; 36600; 70450; 70486; 70496; 70498; 71045; 71260; 72125; 72170; 74018; 74177; 76000; 80048; 80053; 80306; 80307; 81003; 82805; 83605; 83735; 83930; 84100; 84295; 85025; 85610; 85730; 86850; 86900; 86901; 87070; 87205; 89220; 90471; 90715; 93970; C1713; C1762; C1776; C1889; C9113; G0390; J0360; J0690; J1100; J1815; J2250; J2405; J2543; J2704; J2765; J3010; J3230; J3475; J3480; J3490; J7030; J7050; Q9967; S0028; U0003; U0005

== ENCOUNTER 2021-09-11 06:32 | Inpatient (IN) | payer BC ==
[2021-09-10 10:55] VITALS: BMI 24.3
[2021-09-11] MEDS ORDERED: Insulin Regular 300 UNITS/3 ML VIAL ONE (07:43)
[2021-09-11 08:10] LABS: SARS-CoV-2 NAA Rapid Test Not Detected (NotDetected)
[2021-09-11 08:33] LABS: Anion Gap 11 mmol/L (10-20); BUN (Urea Nitrogen) 10 mg/dL (8.9-20.6); Calc. Creatinine Clearance 113 mL/min (70-130); Calcium 9.6 mg/dL (7.8-10.44); Carbon Dioxide 26 mmol/L (22-29); Chloride 98 mmol/L (98-107); Glucose 476 mg/dL (70-105); Potassium 4.1 mmol/L (3.5-5.1); Sodium 131 mmol/L (136-145)
[2021-09-11] MEDS ORDERED: HYDROmorphone 0.5 MG/0.5 ML SYRINGE ONE (09:29)
[2021-09-11] MEDS ORDERED: fentaNYL Citrate/PF 100 MCG/2 ML SYRINGE ONE (09:29)
[2021-09-11] MEDS ORDERED: Midazolam HCl 2 mg/2 ml Vial ONE (09:33)
[2021-09-11] MEDS ORDERED: Lidocaine 1% PF 5 ML VIAL ONE (09:52)
[2021-09-11] MEDS ORDERED: PROPOFOL 200 MG/20 ML VIAL ONE (09:52)
[2021-09-11] MEDS ORDERED: Ondansetron PF 4 MG/2 ML Vial ONE (09:52)
[2021-09-11] MEDS ORDERED: Ketorolac Tromethamine 30 MG/ML VIAL ONE (09:52)
[2021-09-11] MEDS ORDERED: Glycopyrrolate 0.2 MG/ML 5 ML SYRINGE ONE (09:52)
[2021-09-11] MEDS ORDERED: Rocuronium Bromide 10 MG/ML (10ML VIAL) ONE (09:52)
[2021-09-11] MEDS ORDERED: PHENYLEPHRINE-NS 100 MCG/ML 10 ML SYRINGE ONE (09:52)
[2021-09-11] MEDS ORDERED: Piperacillin/Tazobactam 3.375 GM VIAL ONE (10:18)
[2021-09-11] MEDS ORDERED: Ondansetron PF 4 MG/2 ML Vial IVP PRN (11:07)
[2021-09-11] MEDS ORDERED: Acetaminophen/Codeine 30-300mg Tablet PO PRN ×2 (11:07)
[2021-09-11] MEDS ORDERED: Communication Order-Pharmacy FS PRN (11:15)
[2021-09-11] MEDS ORDERED: Promethazine HCl 25 MG/ML VIAL IVPB PRN (11:20)
[2021-09-11] MEDS ORDERED: Ondansetron HCl/PF 4 MG/2 ML Vial IVP PRN (11:20)
[2021-09-11] MEDS ORDERED: Promethazine HCl 25 MG/ML VIAL IM PRN (11:20)
[2021-09-11] MEDS: Sodium Chloride 0.9% 100 ML IV SCH ×6 (13:12→17:26)
[2021-09-11] MEDS ORDERED: Heparin 1,000 UNITS/ML VIAL ONE (13:37)
[2021-09-11] MEDS ORDERED: Dextrose 50% Abboject 50 ML SYRINGE SLOW IVP PRN (13:57)
[2021-09-11] MEDS ORDERED: Dextrose 5% in Water 1,000 ML IV PRN (13:57)
[2021-09-11] MEDS: Piperacillin/Tazobactam 3.375 GM in Sodium Chloride 0.9% 100 ML IVPB SCH ×2 (14:44→22:20)
[2021-09-11] MEDS: HumaLOG 300 UNITS/3 ML VIAL SC PRN ×2 (17:47→20:38)
[2021-09-11] MEDS: Vancomycin 1 GM in Premix Bag 1 BAG IVPB SCH (20:27)
[2021-09-11] MEDS: Insulin Glargine 30 UNITS/0.3 ML VIAL SC SCH (20:27)
[2021-09-12] MEDS: Sodium Chloride 0.9% 100 ML IV SCH ×12 (02:08→20:53)
[2021-09-12] MEDS: Piperacillin/Tazobactam 3.375 GM in Sodium Chloride 0.9% 100 ML IVPB SCH ×2 (05:05→13:20)
[2021-09-12 05:39] LABS: #Eosinphils 0.4 thou/uL (0.0-0.7); #Lymphocytes 1.7 thou/uL (1.20-3.40); #Monocytes 1.1 thou/uL (0.11-0.59); #Neutrophils 10.8 thou/uL (1.40-6.50); %Basophils 0.3 % (0.0-1.0); %Lymphocytes 12.2 % (21.0-51.0); %Monocytes 7.8 % (0.0-10.0); %Neutrophils 76.7 % (42.0-75.0); Hemoglobin 9.4 g/dL (14.0-18.0); Mean Corpuscular HGB CONC 31.7 g/dL (32.0-36.0); Mean Corpuscular Hemoglobin 27.2 pg (27.0-31.0); Mean Corpuscular Volume 85.8 fL (78.0-98.0); Platelet Count 325 thou/uL (130-400); RBC Distribution Width 13.3 % (11.5-14.5); Red Blood Cell (RBC) Count 3.47 mill/uL (4.70-6.10)
[2021-09-12] MEDS: HumaLOG 300 UNITS/3 ML VIAL SC PRN ×4 (05:42→20:47)
[2021-09-12 05:46] LABS: Hemoglobin A1c 11.7 % (4.0-6.0)
[2021-09-12 05:59] LABS: Anion Gap 10 mmol/L (10-20); BUN (Urea Nitrogen) 9 mg/dL (8.9-20.6); Calc. Creatinine Clearance 126 mL/min (70-130); Carbon Dioxide 28 mmol/L (22-29); Chloride 98 mmol/L (98-107); Glucose 293 mg/dL (70-105); Potassium 4.2 mmol/L (3.5-5.1); Sodium 132 mmol/L (136-145)
[2021-09-12] MEDS: Morphine 2 MG/ML VIAL SLOW IVP PRN (08:48)
[2021-09-12] MEDS: Famotidine 20 MG TAB PO SCH (08:54)
[2021-09-12] MEDS: Vancomycin 1 GM in Premix Bag 1 BAG IVPB SCH ×2 (08:54→20:41)
[2021-09-12] MEDS: FLUoxetine HCl 20 MG CAP PO SCH (08:54)
[2021-09-12] MEDS: Rosuvastatin 20 MG TAB PO SCH (08:54)
[2021-09-12] MEDS: Cholecalciferol 1,000 UNITS (25 MCG) TAB PO SCH (08:54)
[2021-09-12] MEDS ORDERED: Insulin Glargine 30 UNITS/0.3 ML VIAL SC SCH (13:00)
[2021-09-12] MEDS: Insulin Glargine 30 UNITS/0.3 ML VIAL SC SCH (20:42)
[2021-09-13] MEDS: Sodium Chloride 0.9% 100 ML IV SCH ×5 (02:52→08:44)
[2021-09-13] MEDS: HumaLOG 300 UNITS/3 ML VIAL SC PRN ×3 (06:10→21:02)
[2021-09-13 06:18] LABS: #Eosinphils 0.6 thou/uL (0.0-0.7); #Lymphocytes 2.2 thou/uL (1.20-3.40); %Basophils 0.4 % (0.0-1.0); %Eosinophils 5.5 % (0.0-10.0); %Monocytes 9.1 % (0.0-10.0); Hemoglobin 9.8 g/dL (14.0-18.0); Mean Corpuscular HGB CONC 31.5 g/dL (32.0-36.0); Mean Corpuscular Hemoglobin 27.5 pg (27.0-31.0); Mean Corpuscular Volume 87.3 fL (78.0-98.0); Mean Platelet Volume 7.2 fL (7.4-10.4); Platelet Count 375 thou/uL (130-400); RBC Distribution Width 13.2 % (11.5-14.5); Red Blood Cell (RBC) Count 3.55 mill/uL (4.70-6.10); White Blood Cell (WBC) Count 10.8 thou/uL (4.8-10.8)
[2021-09-13] MEDS ORDERED: Insulin Glargine 30 UNITS/0.3 ML VIAL SC SCH ×2 (09:00→21:00)
[2021-09-13] MEDS: Famotidine 20 MG TAB PO SCH (09:48)
[2021-09-13] MEDS: Cholecalciferol 1,000 UNITS (25 MCG) TAB PO SCH (09:48)
[2021-09-13] MEDS: Rosuvastatin 20 MG TAB PO SCH (09:48)
[2021-09-13] MEDS: Vancomycin 1 GM in Premix Bag 1 BAG IVPB SCH ×2 (09:49→21:02)
[2021-09-13] MEDS: FLUoxetine HCl 20 MG CAP PO SCH (09:49)
[2021-09-13] MEDS: metFORMIN 500 MG TAB PO SCH (16:39)
[2021-09-14] MEDS: HumaLOG 300 UNITS/3 ML VIAL SC PRN ×3 (06:01→17:31)
[2021-09-14 06:05] LABS: #Eosinphils 0.9 thou/uL (0.0-0.7); #Lymphocytes 2.4 thou/uL (1.20-3.40); #Monocytes 0.9 thou/uL (0.11-0.59); #Neutrophils 7.6 thou/uL (1.40-6.50); %Basophils 0.4 % (0.0-1.0); %Eosinophils 7.3 % (0.0-10.0); %Lymphocytes 19.9 % (21.0-51.0); %Monocytes 7.9 % (0.0-10.0); %Neutrophils 64.6 % (42.0-75.0); Hemoglobin 9.4 g/dL (14.0-18.0); Mean Corpuscular HGB CONC 31.1 g/dL (32.0-36.0); Mean Corpuscular Hemoglobin 26.7 pg (27.0-31.0); Mean Corpuscular Volume 85.9 fL (78.0-98.0); Platelet Count 437 thou/uL (130-400); RBC Distribution Width 13.4 % (11.5-14.5); Red Blood Cell (RBC) Count 3.51 mill/uL (4.70-6.10); White Blood Cell (WBC) Count 11.8 thou/uL (4.8-10.8)
[2021-09-14] MEDS: metFORMIN 500 MG TAB PO SCH ×2 (08:44→17:31)
[2021-09-14] MEDS: Famotidine 20 MG TAB PO SCH (08:44)
[2021-09-14] MEDS: Vancomycin 1 GM in Premix Bag 1 BAG IVPB SCH (08:44)
[2021-09-14] MEDS: Cholecalciferol 1,000 UNITS (25 MCG) TAB PO SCH (08:44)
[2021-09-14] MEDS: Rosuvastatin 20 MG TAB PO SCH (08:44)
[2021-09-14] MEDS: FLUoxetine HCl 20 MG CAP PO SCH (08:44)
[2021-09-14] MEDS: CEFAZOLIN 2 GM in Sodium Chloride 0.9% 100 ML IVPB SCH ×2 (13:47→22:42)
[2021-09-14] MEDS ORDERED: Insulin Glargine 30 UNITS/0.3 ML VIAL SC SCH (21:00)
[2021-09-15] MEDS: HumaLOG 300 UNITS/3 ML VIAL SC PRN ×3 (05:55→17:17)
[2021-09-15] MEDS: CEFAZOLIN 2 GM in Sodium Chloride 0.9% 100 ML IVPB SCH ×3 (05:55→22:09)
[2021-09-15] MEDS: metFORMIN 500 MG TAB PO SCH ×2 (08:48→16:17)
[2021-09-15] MEDS: Cholecalciferol 1,000 UNITS (25 MCG) TAB PO SCH (08:48)
[2021-09-15] MEDS: Famotidine 20 MG TAB PO SCH (08:48)
[2021-09-15] MEDS: FLUoxetine HCl 20 MG CAP PO SCH (08:48)
[2021-09-15] MEDS: Rosuvastatin 20 MG TAB PO SCH (08:48)
[2021-09-15] MEDS: Morphine 2 MG/ML VIAL SLOW IVP PRN (12:42)
[2021-09-15] MEDS ORDERED: Insulin Glargine 30 UNITS/0.3 ML VIAL SC SCH (21:00)
[2021-09-16] MEDS: CEFAZOLIN 2 GM in Sodium Chloride 0.9% 100 ML IVPB SCH ×3 (06:18→21:14)
[2021-09-16] MEDS: metFORMIN 500 MG TAB PO SCH ×2 (07:47→17:14)
[2021-09-16] MEDS: Rosuvastatin 20 MG TAB PO SCH (07:47)
[2021-09-16] MEDS: FLUoxetine HCl 20 MG CAP PO SCH (07:47)
[2021-09-16] MEDS: HumaLOG 300 UNITS/3 ML VIAL SC PRN ×3 (07:47→17:14)
[2021-09-16] MEDS: Famotidine 20 MG TAB PO SCH (07:47)
[2021-09-16] MEDS: Cholecalciferol 1,000 UNITS (25 MCG) TAB PO SCH (07:47)
[2021-09-16] MEDS: Insulin Glargine 30 UNITS/0.3 ML VIAL SC SCH (21:14)
[2021-09-17] MEDS: CEFAZOLIN 2 GM in Sodium Chloride 0.9% 100 ML IVPB SCH ×3 (06:46→21:01)
[2021-09-17] MEDS: Rosuvastatin 20 MG TAB PO SCH (08:21)
[2021-09-17] MEDS: FLUoxetine HCl 20 MG CAP PO SCH (08:21)
[2021-09-17] MEDS: Cholecalciferol 1,000 UNITS (25 MCG) TAB PO SCH (08:21)
[2021-09-17] MEDS: Famotidine 20 MG TAB PO SCH (08:21)
[2021-09-17] MEDS: metFORMIN 500 MG TAB PO SCH ×2 (08:21→16:46)
[2021-09-17] MEDS: Morphine 2 MG/ML VIAL SLOW IVP PRN (10:22)
[2021-09-17] MEDS: HumaLOG 300 UNITS/3 ML VIAL SC PRN (11:50)
[2021-09-17] MEDS: Insulin Glargine 30 UNITS/0.3 ML VIAL SC SCH (21:00)
[2021-09-18] MEDS: CEFAZOLIN 2 GM in Sodium Chloride 0.9% 100 ML IVPB SCH ×3 (06:27→21:55)
[2021-09-18] MEDS: Famotidine 20 MG TAB PO SCH (08:05)
[2021-09-18] MEDS: metFORMIN 500 MG TAB PO SCH ×2 (08:05→16:42)
[2021-09-18] MEDS: Cholecalciferol 1,000 UNITS (25 MCG) TAB PO SCH (08:05)
[2021-09-18] MEDS: Rosuvastatin 20 MG TAB PO SCH (08:05)
[2021-09-18] MEDS: FLUoxetine HCl 20 MG CAP PO SCH (08:05)
[2021-09-18] MEDS: HumaLOG 300 UNITS/3 ML VIAL SC PRN ×2 (11:40→21:55)
[2021-09-18] MEDS: Insulin Glargine 30 UNITS/0.3 ML VIAL SC SCH (21:55)
[2021-09-19] MEDS: CEFAZOLIN 2 GM in Sodium Chloride 0.9% 100 ML IVPB SCH ×3 (07:57→21:13)
[2021-09-19] MEDS: Famotidine 20 MG TAB PO SCH (07:58)
[2021-09-19] MEDS: FLUoxetine HCl 20 MG CAP PO SCH (07:59)
[2021-09-19] MEDS: metFORMIN 500 MG TAB PO SCH (07:59)
[2021-09-19] MEDS: Cholecalciferol 1,000 UNITS (25 MCG) TAB PO SCH (07:59)
[2021-09-19] MEDS: Rosuvastatin 20 MG TAB PO SCH (07:59)
[2021-09-19] MEDS: Morphine 2 MG/ML VIAL SLOW IVP PRN (12:31)
[2021-09-19] MEDS: HumaLOG 300 UNITS/3 ML VIAL SC PRN (12:34)
[2021-09-19] MEDS: Insulin Glargine 30 UNITS/0.3 ML VIAL SC SCH (21:15)
[2021-09-20] MEDS: CEFAZOLIN 2 GM in Sodium Chloride 0.9% 100 ML IVPB SCH ×3 (06:18→21:30)
[2021-09-20 06:52] LABS: #Eosinphils 0.6 thou/uL (0.0-0.7); #Lymphocytes 2.5 thou/uL (1.20-3.40); #Monocytes 0.8 thou/uL (0.11-0.59); #Neutrophils 7.1 thou/uL (1.40-6.50); %Basophils 0.2 % (0.0-1.0); %Eosinophils 5.3 % (0.0-10.0); %Lymphocytes 23.1 % (21.0-51.0); %Monocytes 6.9 % (0.0-10.0); %Neutrophils 64.5 % (42.0-75.0); Hemoglobin 10.7 g/dL (14.0-18.0); Mean Corpuscular Hemoglobin 27.5 pg (27.0-31.0); Mean Corpuscular Volume 85.9 fL (78.0-98.0); Mean Platelet Volume 6.5 fL (7.4-10.4); Platelet Count 462 thou/uL (130-400); RBC Distribution Width 13.5 % (11.5-14.5); Red Blood Cell (RBC) Count 3.87 mill/uL (4.70-6.10)
[2021-09-20 07:11] LABS: Anion Gap 10 mmol/L (10-20); BUN (Urea Nitrogen) 11 mg/dL (8.9-20.6); Calc. Creatinine Clearance 136 mL/min (70-130); Carbon Dioxide 29 mmol/L (22-29); Chloride 103 mmol/L (98-107); Glucose 114 mg/dL (70-105); Potassium 4.1 mmol/L (3.5-5.1); Sodium 138 mmol/L (136-145)
[2021-09-20] MEDS: Cholecalciferol 1,000 UNITS (25 MCG) TAB PO SCH (08:46)
[2021-09-20] MEDS: Famotidine 20 MG TAB PO SCH (08:46)
[2021-09-20] MEDS: FLUoxetine HCl 20 MG CAP PO SCH (08:46)
[2021-09-20] MEDS: Rosuvastatin 20 MG TAB PO SCH (08:46)
[2021-09-20] MEDS: metFORMIN 500 MG TAB PO SCH ×2 (08:46→17:35)
[2021-09-20] MEDS: Insulin Glargine 30 UNITS/0.3 ML VIAL SC SCH (21:32)
[2021-09-21] MEDS: CEFAZOLIN 2 GM in Sodium Chloride 0.9% 100 ML IVPB SCH ×3 (05:36→20:51)
[2021-09-21] MEDS: Rosuvastatin 20 MG TAB PO SCH (08:24)
[2021-09-21] MEDS: Famotidine 20 MG TAB PO SCH (08:24)
[2021-09-21] MEDS: Cholecalciferol 1,000 UNITS (25 MCG) TAB PO SCH (08:25)
[2021-09-21] MEDS: metFORMIN 500 MG TAB PO SCH ×2 (08:25→16:44)
[2021-09-21] MEDS: FLUoxetine HCl 20 MG CAP PO SCH (08:25)
[2021-09-21] MEDS: HumaLOG 300 UNITS/3 ML VIAL SC PRN ×2 (16:45→20:48)
[2021-09-21] MEDS: Insulin Glargine 30 UNITS/0.3 ML VIAL SC SCH (20:46)
[2021-09-22] MEDS: CEFAZOLIN 2 GM in Sodium Chloride 0.9% 100 ML IVPB SCH ×3 (05:42→21:28)
[2021-09-22] MEDS: Rosuvastatin 20 MG TAB PO SCH (08:39)
[2021-09-22] MEDS: Cholecalciferol 1,000 UNITS (25 MCG) TAB PO SCH (08:39)
[2021-09-22] MEDS: Famotidine 20 MG TAB PO SCH (08:39)
[2021-09-22] MEDS: FLUoxetine HCl 20 MG CAP PO SCH (08:40)
[2021-09-22] MEDS: metFORMIN 500 MG TAB PO SCH ×2 (08:40→17:17)
[2021-09-22] MEDS: Insulin Glargine 30 UNITS/0.3 ML VIAL SC SCH (21:36)
[2021-09-23] MEDS: CEFAZOLIN 2 GM in Sodium Chloride 0.9% 100 ML IVPB SCH ×3 (05:46→21:41)
[2021-09-23] MEDS: Cholecalciferol 1,000 UNITS (25 MCG) TAB PO SCH (08:10)
[2021-09-23] MEDS: Rosuvastatin 20 MG TAB PO SCH (08:10)
[2021-09-23] MEDS: Famotidine 20 MG TAB PO SCH (08:10)
[2021-09-23] MEDS: metFORMIN 500 MG TAB PO SCH ×2 (08:10→17:01)
[2021-09-23] MEDS: FLUoxetine HCl 20 MG CAP PO SCH (08:10)
[2021-09-23] MEDS: Insulin Glargine 30 UNITS/0.3 ML VIAL SC SCH (21:41)
[2021-09-23] MEDS: HumaLOG 300 UNITS/3 ML VIAL SC PRN (21:42)
[2021-09-24] MEDS: CEFAZOLIN 2 GM in Sodium Chloride 0.9% 100 ML IVPB SCH ×3 (06:13→22:02)
[2021-09-24] MEDS: HumaLOG 300 UNITS/3 ML VIAL SC PRN ×2 (06:13→17:49)
[2021-09-24] MEDS: Cholecalciferol 1,000 UNITS (25 MCG) TAB PO SCH (08:39)
[2021-09-24] MEDS: Rosuvastatin 20 MG TAB PO SCH (08:40)
[2021-09-24] MEDS: metFORMIN 500 MG TAB PO SCH ×2 (08:40→17:48)
[2021-09-24] MEDS: FLUoxetine HCl 20 MG CAP PO SCH (08:40)
[2021-09-24] MEDS: Famotidine 20 MG TAB PO SCH (08:43)
[2021-09-24] MEDS: Insulin Glargine 30 UNITS/0.3 ML VIAL SC SCH (22:02)
[2021-09-25] MEDS: CEFAZOLIN 2 GM in Sodium Chloride 0.9% 100 ML IVPB SCH (06:30)
[2021-09-25] MEDS: HumaLOG 300 UNITS/3 ML VIAL SC PRN (06:30)
[2021-09-25 08:52] VITALS: TEMP 97.9
[2021-09-25] MEDS: metFORMIN 500 MG TAB PO SCH (09:36)
[2021-09-25] MEDS: Rosuvastatin 20 MG TAB PO SCH (09:36)
[2021-09-25] MEDS: FLUoxetine HCl 20 MG CAP PO SCH (09:36)
[2021-09-25] MEDS: Famotidine 20 MG TAB PO SCH (09:36)
[2021-09-25] MEDS: Cholecalciferol 1,000 UNITS (25 MCG) TAB PO SCH (09:36)
[2021-09-25 12:51] VITALS: BP 117/83
== END 2021-09-25 14:15 | disposition home or self-care (01) | DRG 493 ==
LOC: SDC 06:32 → SURG A 11:13
PROVIDERS: ADMIT Orthopaedic Surgery; ATTEND Orthopaedic Surgery
PROC: 0QBH0ZZ Excision of Left Tibia, Open Approach (ICD-10-PCS; principal; 2021-09-11)
PROC: 0QPH04Z Removal of Internal Fixation Device from Left Tibia, Open Approach (ICD-10-PCS; 2021-09-11)
PROC: 02HV33Z Insertion of Infusion Device into Superior Vena Cava, Percutaneous Approach (ICD-10-PCS; 2021-09-15)
PROC: B548ZZA Ultrasonography of Superior Vena Cava, Guidance (ICD-10-PCS; 2021-09-15)
DX: T84.623A Infection and inflammatory reaction due to internal fixation device of left tibia, initial encounter (principal); T81.30XA Disruption of wound, unspecified, initial encounter; M86.162 Other acute osteomyelitis, left tibia and fibula; T84.625A Infection and inflammatory reaction due to internal fixation device of left fibula, initial encounter; Z20.822 Contact with and (suspected) exposure to COVID-19; E78.5 Hyperlipidemia, unspecified; F32.A Depression, unspecified; E11.65 Type 2 diabetes mellitus with hyperglycemia; Y83.8 Other surgical procedures as the cause of abnormal reaction of the patient, or of later complication, without mention of misadventure at the time of the procedure; B95.61 Methicillin susceptible Staphylococcus aureus infection as the cause of diseases classified elsewhere; F41.9 Anxiety disorder, unspecified; K21.9 Gastro-esophageal reflux disease without esophagitis; E11.51 Type 2 diabetes mellitus with diabetic peripheral angiopathy without gangrene; Z79.4 Long term (current) use of insulin; Z79.84 Long term (current) use of oral hypoglycemic drugs; Z87.820 Personal history of traumatic brain injury; Z79.899 Other long term (current) drug therapy
CPT/HCPCS: 36415; 36416; 36569; 76000; 80048; 83036; 85025; 87070; 87077; 87186; 87205; 88305; C1751; J1170; J1644; J1815; J1885; J2250; J2270; J2405; J2543; J2704; J3370; J3490; U0002; U0003; U0005

== ENCOUNTER 2021-09-26 18:16 | Emergency (ER) | payer BC ==
[2021-09-26] MEDS ORDERED: Acetaminophen 500 MG TAB ONE (19:01)
== END 2021-09-26 20:43 | disposition home or self-care (01) ==
LOC: ERS 18:16
DX: S82.452 Displaced comminuted fracture of shaft of left fibula (principal); E11.9 Type 2 diabetes mellitus without complications; E78.5 Hyperlipidemia, unspecified; Z79.84 Long term (current) use of oral hypoglycemic drugs; Z79.4 Long term (current) use of insulin; Z79.899 Other long term (current) drug therapy; W19.XXXA Unspecified fall, initial encounter
CPT/HCPCS: 29405; J1956